=== PATIENT | female | born 2000 | race Caucasian/White ===

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

== ENCOUNTER 2022-04-05 22:37 | Emergency (ER) | payer BC ==
[2022-04-05 22:50] VITALS: BP 133/82; PULSE 88; RESP 18; TEMP 97.9
[2022-04-06] MEDS ORDERED: IBUPROFEN 600 MG TAB PO STA (00:01)
--- NOTE | 2022-04-06 00:57 | ED ---
Psych HPI - General Chief Complaint: Psychiatric Symptoms Stated Complaint: Mental health Time Seen by Provider: 04/05/22 22:54 Source: police Mode of arrival: ambulatory - History of Present Illness Initial Comments: this patient is a 22-year-old woman here to have psychiatric evaluation. The patient brought by [employer] after she had text did to a friend a message that she could not have a court decision reversed she would kill herself. The patient's friends felt it was expressing suicidal ideation. The patient states that she does not feel suicidal. MD Complaint: other -: hour(s) Associated Psychiatric Symptoms: none Quality: resolved prior to arrival Improves With: none Worsens With: none - Related Data Home Medications Medication Instructions Recorded Confirmed norethindrone-e.estradioL-iron 1 tab PO DAILY 06/28/19 06/28/19 [Junel Fe 1 mg-20 Mcg Tablet] Allergies Allergy/AdvReac Type Severity Reaction Status Date / Time No Known Allergies Allergy Verified 04/05/22 22:50 Review of Systems ROS Statement: Those systems with pertinent positive or pertinent negative responses have been documented in the HPI. ROS Other: All systems not noted in ROS Statement are negative. Respiratory: Denies: cough, dyspnea Cardiovascular: Denies: chest pain, palpitations Gastrointestinal: Denies: abdominal pain, vomiting Musculoskeletal: Denies: back pain Neurological: Denies: headache Psychiatric: Reports: as per HPI. Denies: depression, auditory hallucinations, visual hallucinations, homicidal thoughts, suicidal thoughts Past Medical History Past Medical History: No Reported History History of Any Multi-Drug Resistant Organisms: None Reported Past Surgical History: No Surgical Hx Reported Past Psychological History: Depression, PTSD Smoking Status: Current every day smoker Past Alcohol Use History: None Reported Past Drug Use History: Marijuana General Exam General appearance: alert, in no apparent distress Head exam: Present: atraumatic, normocephalic Eye exam: Present: normal appearance. Absent: scleral icterus, conjunctival injection Respiratory exam: Present: normal lung sounds bilaterally. Absent: respiratory distress, wheezes, rales, rhonchi, stridor Cardiovascular Exam: Present: regular rate, normal rhythm, normal heart sounds. Absent: systolic murmur, diastolic murmur, rubs, gallop GI/Abdominal exam: Present: soft. Absent: distended, tenderness, guarding, rebound, rigid, mass Extremities exam: Present: normal inspection, normal capillary refill Neurological exam: Present: alert Psychiatric exam: Present: normal affect, normal mood. Absent: depressed, agitated, flat affect, manic, homicidal ideation, suicidal ideation Skin exam: Present: warm, dry, intact, normal color. Absent: rash Course Vital Signs 04/05/22 22:43 Temperature 97.9 F Pulse Rate 88 Respiratory 18 Rate Blood Pressure 133/82 O2 Sat by Pulse 97 Oximetry Medical Decision Making - Lab Data Lab Results 04/06/22 Range/Units 00:53 Urine HCG, Qual Not Detected (Not Detectd) Disposition Clinical Impression: Mood disorder Disposition: HOME SELF-CARE Condition: Good Is patient prescribed a controlled substance at d/c from ED?: No Referrals: Nonstaff,Physician [Primary Care Provider] - 1-2 days
== END 2022-04-06 03:42 | disposition home or self-care (01) ==
LOC: EC 22:37
DX: F39 Unspecified mood [affective] disorder (principal); F99 Mental disorder, not otherwise specified
CPT/HCPCS: 81025; 82075; 99283